=== PATIENT | female | born 1940 | race Caucasian/White ===

== ENCOUNTER 2022-03-02 15:44 | Emergency (ER) | payer MEDICARE, OTHER ==
[~2022-03-02] VITALS: Ht 170.2 cm; Wt 74.8 kg
--- NOTE | 2022-03-02 16:00 | NUR ---
The patient is sujata, from [facility], fell off her bed unwitnessed fall,hematoma on the forehead. No change in LOC per report. The patient is in room air, respiration regular and unlabored. The patient is attached to the monitor. Warm blanket provided for comfort. Will continue to monitor the patient.
--- NOTE | 2022-03-02 17:56 | NUR ---
[facility] ETA [id number]
--- NOTE | 2022-03-02 19:29 | NUR ---
report given to nurse Conn for oleg
--- NOTE | 2022-03-02 19:34 | NUR ---
URINE COLLECTED AND SENT TO LAB
[2022-03-02 20:32] LABS: COLOR,URINE YELLOW (YELLOW)
[2022-03-02 20:34] LABS: BILIRUBIN,URINE NEGATIVE (NEGATIVE); PH,URINE 7.5 (5.0-8.0); UGLUCOSE NEGATIVE (NEGATIVE)
[2022-03-02 20:35] LABS: LEUKOCYTE ESTERASE ,URINE LARGE (NEGATIVE); NITRITE, URINE POSITIVE (NEGATIVE); PROTEIN,URINE 1+ mg/dl (NEGATIVE); UROBILINOGEN,URINE 0.2 EU/dL (0.2)
[2022-03-02 20:39] LABS: BACTERIA,URINE 4+ /HPF (None Seen); SQUAMOUS EPITHELIAL CELL,UR 0-2 /HPF (None Seen); WBC,URINE 51-80 /HPF (0-3)
[2022-03-02] MEDS ORDERED: CEFTRIAXONE 1GM BAG (ER ONLY) 50 ML IV ONE (20:50)
[2022-03-02] MEDS ORDERED: LIDOCAINE 1% INJ 50 ML MDV IJ ONE (20:52)
[2022-03-02] MEDS ORDERED: CEFTRIAXONE 1 G VIAL ONE (20:53)
--- NOTE | 2022-03-02 20:59 | NUR ---
[facility] ETA 10 MINUTES.
[2022-03-02] MEDS ORDERED: CEFTRIAXONE 1 G VIAL IM ONE (21:00)
[2022-03-02] MEDS ORDERED: CEPH500C2 PO (21:03)
--- NOTE | 2022-03-02 21:06 | NUR ---
REPORT GIVEN TO BRAULIO AT NURSING FACILITY
--- NOTE | 2022-03-02 21:15 | NUR ---
PT PICKED UP BY [facility] [address] IN STABLE CONDITION
[2022-03-02 21:20] VITALS: BP 130/71
== END 2022-03-02 21:21 ==
LOC: ER 15:47
DX: S00.83XA Contusion of other part of head, initial encounter (principal); N39.0 Urinary tract infection, site not specified; I10 Essential (primary) hypertension; E78.5 Hyperlipidemia, unspecified; E11.9 Type 2 diabetes mellitus without complications; F20.9 Schizophrenia, unspecified; F32.A Depression, unspecified; E03.9 Hypothyroidism, unspecified; Z86.69 Personal history of other diseases of the nervous system and sense organs; W06.XXXA Fall from bed, initial encounter; Y93.89 Activity, other specified; Y92.89 Other specified places as the place of occurrence of the external cause; Y99.8 Other external cause status
CPT/HCPCS: 70450; 72125; 72131; 72192; 81001; 87086; 96372; 99284; J0696 ×2; J3490; 87186-TC